=== PATIENT | female | born 1985 | race Caucasian/White ===

== ENCOUNTER 2017-05-26 23:05 | Emergency (ER) | payer OTHER ==
[~2017-05-26] VITALS: Ht 160 cm; Wt 69.5 kg
[~2017-05-26 23:05] MED LIST: AZITHROMYCIN250 MG1 PO; BACTRIM,SEPT1 TABLET PO; CLEOCIN HCL300 MG PO; CLEOCIN600 MG; CLINDAMYCIN HC300 MG PO; Cipro PO; DESYREL 150 MG150 MG PO; IBUPROFEN M200 MG PO; IBUPROFEN800 MG PO; LEVAQUIN500 MG PO; METHADONE10 MG PO; MIRALAX255 GM PO; MIRTAZAPINE30 MG PO; MOTRIN600 MG PO; NAPROSYN500 MG PO; NAPROXEN250 M1; OXYCODONE HCL5 M1 PO; PERCOCET 5/31 TABLET PO; PREDNISONE20 MG PO; PRENATAL TABLE1 EAC3 PO; QUETIAPINE FUMA50 MG PO; ROBITUSSIN100 MG/5 M PO; SERTRALINE HCL100 MG PO; SPRINTEC1 EACH PO; SUBOXONE 8 M1 TABLET SL; TRAZODONE HCL50 MG PO; ULTRAM50 MG PO; VALIUM5 MG PO; VIGAMOX 0.60 DROP/3 BOTH EYES; VISTARIL50 MG PO; Vibramycin, Doryx PO; Xanax PO; ZITHROMAX250 MG PO
[2017-05-27 03:49] VITALS: BP 130/78
== END 2017-05-27 03:50 | disposition home or self-care (01) ==
LOC: EME 23:05
PROVIDERS: Physician Assistant Medical
DX: J11.1 Influenza due to unidentified influenza virus with other respiratory manifestations (principal); R51 Headache; R11.0 Nausea; F17.200 Nicotine dependence, unspecified, uncomplicated
CPT/HCPCS: 71046; 84703; 87502; 87651 90; 94640; 99281; 99284

== ENCOUNTER 2017-08-25 22:58 | Emergency (ER) | payer OTHER ==
[~2017-08-25] VITALS: Ht 162.6 cm; Wt 60.0 kg
[2017-08-26 05:06] LABS: BASOPHIL (%) 0.6 % (0-1); EOSINOPHIL (%) 1.4 % (0-5); EOSINOPHIL COUNT 0.1 K/uL (0-0.3); HEMATOCRIT 39.6 % (36.0-46.0); HEMOGLOBIN 13.5 G/DL (11.9-15.5); IMMATURE GRANULOCYTE (%) 0.3 % (0.0-0.7); LYMPHOCYTE (%) 27.5 % (15-42); LYMPHOCYTE COUNT 1.8 K/uL (1.0-2.8); MCH 31.5 PG (29.0-34.0); MCHC 34.1 G/DL (30.0-36.0); MCV 92.5 FL (83-99); MONOCYTE (%) 6.1 % (3-12); MONOCYTE COUNT 0.4 K/uL (0-0.8); NEUTROPHIL (%) 64.1 % (45-76); NEUTROPHIL COUNT 4.2 K/uL (1.8-6.4); PLATELET COUNT 221 K/uL (156-360); RBC DIS.WIDTH-CV 13.4 % (11.8-14.6); RBC DIS.WIDTH-SD 45.9 % (39-53); RED BLOOD COUNT 4.28 M/uL (3.80-5.20); WHITE BLOOD COUNT 6.5 K/uL (4.1-10.2)
[2017-08-26 05:16] LABS: ALBUMIN 4.7 g/dL (3.2-4.8); CHLORIDE 105 mEq/L (99-109); POTASSIUM 3.8 mEq/L (3.7-5.4); SODIUM 142 mEq/L (136-147)
[2017-08-26 05:18] LABS: GLUCOSE 82 mg/dL (70-99); TOTAL PROTEIN 7.5 g/dL (6.4-8.3)
[2017-08-26 05:20] LABS: TOTAL BILIRUBIN 0.5 mg/dL (0.0-1.0)
[2017-08-26 05:21] LABS: SERUM ETHYL ALCOHOL < 10 mg/dL
[2017-08-26 05:22] LABS: ALKALINE PHOSPHATASE 59 IU/L (3-129); GFR ESTIMATE (CALCULATED) > 59 mL/min/
[2017-08-26 05:23] LABS: AST (GOT) 22 IU/L (2-34); UREA NITROGEN (BUN) 14 mg/dL (9-23)
[2017-08-26 05:25] LABS: ALT (GPT) 18 IU/L (3-49)
[2017-08-26 05:36] LABS: QUANTITATIVE HCG < 4.0 MIU/ML
[2017-08-26 07:41] LABS: APPEARANCE CLEAR ((CLEAR)); BILIRUBIN NEGATIVE; BLOOD NEGATIVE; COLOR STRAW ((YELLOW)); GLUCOSE (STRIP) NEGATIVE; KETONES NEGATIVE; LEUKOCYTES NEGATIVE; NITRITE NEGATIVE; PROTEIN (STRIP) NEGATIVE; SPECIFIC GRAVITY 1.006 (1.000-1.030); UCUL ADDED? NO; UROBILINOGEN 0.2 MG/DL (0.2-1.0)
[2017-08-26 07:59] LABS: AMPHETAMINE NEGATIVE (500 ng/mL); BARBITURATES NEGATIVE (200 ng/mL); BENZODIAZEPINES NEGATIVE (150 ng/mL); BUPRENORPHINE NEGATIVE (10 ng/mL); COCAINE NEGATIVE (150 ng/mL); METHADONE PRESUMPTIVE POSITIVE (200 ng/mL); METHAMPHETAMINE NEGATIVE (500 ng/mL); OPIATES (MORPHINE) NEGATIVE (100 ng/mL); OXYCODONE NEGATIVE (100 ng/mL); PHENCYCLIDINE NEGATIVE (25 ng/mL); PROPOXYPHENE NEGATIVE (300 ng/mL); THC CANNABINOIDS NEGATIVE (50 ng/mL); TRICYCLIC ANTIDEPRESSANTS PRESUMPTIVE POSITIVE (300 ng/mL)
[2017-08-26 11:44] VITALS: BP 119/70
== END 2017-08-26 11:55 | disposition home or self-care (01) ==
LOC: EME 22:58
PROVIDERS: Emergency Medicine
DX: F19.10 Other psychoactive substance abuse, uncomplicated (principal); R41.82 Altered mental status, unspecified; F10.129 Alcohol abuse with intoxication, unspecified; F41.9 Anxiety disorder, unspecified; F32.9 Major depressive disorder, single episode, unspecified; F17.200 Nicotine dependence, unspecified, uncomplicated; Z86.14 Personal history of Methicillin resistant Staphylococcus aureus infection; Z79.891 Long term (current) use of opiate analgesic; Z91.040 Latex allergy status; Z88.0 Allergy status to penicillin; Z88.6 Allergy status to analgesic agent; Z88.1 Allergy status to other antibiotic agents
CPT/HCPCS: 70450; 80053; 81003; 82948; 84702; 85025; 99281; 99285; G0480

== ENCOUNTER 2017-09-17 17:57 | Emergency (ER) | payer OTHER ==
[~2017-09-17] VITALS: Ht 162.6 cm; Wt 68.9 kg
[2017-09-17] MEDS ORDERED: PERCOCET 5/31 TABLET PO (22:43)
[2017-09-17] MEDS ORDERED: AUGMENTIN875 MG PO (22:54)
[2017-09-17 23:26] VITALS: BP 123/75
== END 2017-09-18 01:14 | disposition home or self-care (01) ==
LOC: EME 17:57
DX: S02.31XA Fracture of orbital floor, right side, initial encounter for closed fracture (principal); S00.83XA Contusion of other part of head, initial encounter; S09.8XXA Other specified injuries of head, initial encounter; S60.222A Contusion of left hand, initial encounter; S60.221A Contusion of right hand, initial encounter; Y04.2XXA Assault by strike against or bumped into by another person, initial encounter; Y07.03 Male partner, perpetrator of maltreatment and neglect; G43.909 Migraine, unspecified, not intractable, without status migrainosus; F41.9 Anxiety disorder, unspecified; F32.9 Major depressive disorder, single episode, unspecified; F17.200 Nicotine dependence, unspecified, uncomplicated; Z86.14 Personal history of Methicillin resistant Staphylococcus aureus infection; Z87.81 Personal history of (healed) traumatic fracture; Z88.6 Allergy status to analgesic agent; Z88.0 Allergy status to penicillin; Z88.1 Allergy status to other antibiotic agents; Z91.040 Latex allergy status
CPT/HCPCS: 70450; 70486; 73130; 99281; 99285

== ENCOUNTER 2017-11-24 01:17 | Emergency (ER) | payer OTHER ==
[~2017-11-24] VITALS: Ht 160 cm; Wt 64.4 kg
[~2017-11-24 01:17] MED LIST changes: +AUGMENTIN875 MG PO
[2017-11-24 01:54] LABS: BASOPHIL (%) 0.6 % (0-1); BASOPHIL COUNT 0.1 K/uL (0-0.1); EOSINOPHIL (%) 0.3 % (0-5); HEMATOCRIT 39.2 % (36.0-46.0); HEMOGLOBIN 13.5 G/DL (11.9-15.5); IMMATURE GRANULOCYTE (%) 0.1 % (0.0-0.7); LYMPHOCYTE (%) 21.6 % (15-42); LYMPHOCYTE COUNT 1.9 K/uL (1.0-2.8); MCH 31.5 PG (29.0-34.0); MCHC 34.4 G/DL (30.0-36.0); MCV 91.4 FL (83-99); MONOCYTE (%) 5.7 % (3-12); MONOCYTE COUNT 0.5 K/uL (0-0.8); NEUTROPHIL (%) 71.7 % (45-76); NEUTROPHIL COUNT 6.3 K/uL (1.8-6.4); PLATELET COUNT 197 K/uL (156-360); RBC DIS.WIDTH-CV 13.1 % (11.8-14.6); RBC DIS.WIDTH-SD 43.4 % (39-53); RED BLOOD COUNT 4.29 M/uL (3.80-5.20); WHITE BLOOD COUNT 8.8 K/uL (4.1-10.2)
[2017-11-24 02:10] LABS: ALBUMIN 4.8 g/dL (3.2-4.8); CHLORIDE 107 mEq/L (99-109); POTASSIUM 3.7 mEq/L (3.7-5.4); SODIUM 141 mEq/L (136-147)
[2017-11-24 02:13] LABS: GLUCOSE 84 mg/dL (70-99); TOTAL PROTEIN 7.7 g/dL (6.4-8.3)
[2017-11-24 02:15] LABS: TOTAL BILIRUBIN 0.5 mg/dL (0.0-1.0)
[2017-11-24 02:16] LABS: ALKALINE PHOSPHATASE 63 IU/L (3-129); SERUM ETHYL ALCOHOL < 10 mg/dL
[2017-11-24 02:17] LABS: CREATININE 1.3 mg/dL (0.6-1.3); GFR ESTIMATE (CALCULATED) 51 mL/min/
[2017-11-24 02:18] LABS: AST (GOT) 23 IU/L (2-34); UREA NITROGEN (BUN) 13 mg/dL (9-23)
[2017-11-24 02:19] LABS: ALT (GPT) 17 IU/L (3-49)
[2017-11-24 02:27] LABS: QUANTITATIVE HCG < 4.0 MIU/ML
[2017-11-24] MEDS ORDERED: MOTRIN600 MG PO (03:35)
[2017-11-24 05:01] VITALS: BP 124/76
== END 2017-11-24 05:05 | disposition home or self-care (01) ==
LOC: EME → EDBD 01:17 → TRA 01:17 → EME 01:17 → TRA 01:17
PROVIDERS: Emergency Medicine
DX: S31.131A Puncture wound of abdominal wall without foreign body, left upper quadrant without penetration into peritoneal cavity, initial encounter (principal); S31.133A Puncture wound of abdominal wall without foreign body, right lower quadrant without penetration into peritoneal cavity, initial encounter; S61.212A Laceration without foreign body of right middle finger without damage to nail, initial encounter; S09.8XXA Other specified injuries of head, initial encounter; X99.9XXA Assault by unspecified sharp object, initial encounter; F32.9 Major depressive disorder, single episode, unspecified; F41.9 Anxiety disorder, unspecified; Z86.14 Personal history of Methicillin resistant Staphylococcus aureus infection; Z88.1 Allergy status to other antibiotic agents; Z88.0 Allergy status to penicillin; F17.200 Nicotine dependence, unspecified, uncomplicated; Z91.040 Latex allergy status
CPT/HCPCS: 71260; 74177; 80053; 81003; 84702; 85025; 99281; 99285; G0480; J7040

== ENCOUNTER 2017-12-30 18:43 | Emergency (ER) | payer OTHER ==
[~2017-12-30] VITALS: Ht 162.6 cm; Wt 63.7 kg
[2017-12-30 22:54] LABS: HEMATOCRIT 39.8 % (36.0-46.0); HEMOGLOBIN 13.2 G/DL (11.9-15.5); MCH 30.8 PG (29.0-34.0); MCHC 33.2 G/DL (30.0-36.0); RBC DIS.WIDTH-CV 12.4 % (11.8-14.6); RBC DIS.WIDTH-SD 42.5 % (39-53); RED BLOOD COUNT 4.28 M/uL (3.80-5.20); WHITE BLOOD COUNT 6.8 K/uL (4.1-10.2)
[2017-12-30 22:57] LABS: CHLORIDE 106 mEq/L (99-109); POTASSIUM 5.1 mEq/L (3.7-5.4); SODIUM 136 mEq/L (136-147)
[2017-12-30 22:59] LABS: GLUCOSE 105 mg/dL (70-99)
[2017-12-30 23:02] LABS: GFR ESTIMATE (CALCULATED) > 59 mL/min/
[2017-12-30 23:03] LABS: UREA NITROGEN (BUN) 11 mg/dL (9-23)
[2017-12-30 23:10] LABS: QUANTITATIVE HCG < 4.0 MIU/ML
[2017-12-31] MEDS ORDERED: FLEXERIL10 MG PO (00:08)
[2017-12-31 00:12] LABS: PLAT.SUFFICIENCY DECREASED; PLATELET COUNT 139 K/uL (156-360)
[2017-12-31 03:29] VITALS: BP 112/67
== END 2017-12-31 03:42 | disposition home or self-care (01) ==
LOC: EME 18:43
PROVIDERS: Emergency Medicine
DX: G56.32 Lesion of radial nerve, left upper limb (principal); Y09 Assault by unspecified means; Y07.03 Male partner, perpetrator of maltreatment and neglect; F41.9 Anxiety disorder, unspecified; F32.9 Major depressive disorder, single episode, unspecified; F17.200 Nicotine dependence, unspecified, uncomplicated; Z86.14 Personal history of Methicillin resistant Staphylococcus aureus infection; Z79.891 Long term (current) use of opiate analgesic; Z91.040 Latex allergy status; Z88.0 Allergy status to penicillin; Z88.6 Allergy status to analgesic agent; Z88.1 Allergy status to other antibiotic agents
CPT/HCPCS: 73110; 80048; 84702; 85027; 99281; 99284